=== PATIENT | male | born 1960 | race Caucasian/White ===

== ENCOUNTER → 2020-10-13 14:17 | Outpatient (CLI) | payer BC, SELFPAY ==
--- NOTE | ~2020-10-13 | CT_ITS ---
EXAMINATION: CTA chest PE protocol EXAM DATE: 10/13/2020 14:45 INDICATION: Dyspnea. TECHNIQUE: Spiral CTA of the chest (pulmonary arteries) was performed with 100 cc Omnipaque 350 intr avenous contrast injection. Images were acquired during the pulmonary arterial phase. Coronal maxi mum intensity projection 3D-reconstructions were created by the technologist on dedicated workstation . Axial, coronal and sagittal reformatted images were reviewed. The dose-length product (DLP) for t his examination was 700.29 mGy-cm. The exposure was tailored according to patient size (auto mA exp osure control), and iterative reconstruction (ASIR) was used as additional dose reduction technique. There is no prior study for comparison. FINDINGS: There is pulmonary embolism in the right main pulmonary artery extending into middle and l ower lobe segmental pulmonary arteries. Some small peripheral right-sided opacities that could be ac zachary pulmonary infarctions. Mild bilateral interlobular septal thickening and some groundglass opaciti es differential diagnosis including chronic interstitial lung disease, pulmonary edema. There are no pleural or pericardial effusions. Tracheobronchial tree is patent. There is no mediastinal, hilar or axillary lymphadenopathy. There is no pneumothorax. Heart normal in size. No evidence of co ronary arterial calcification. Upper abdomen is unremarkable. There is thoracic spondylosis withou t osteoblastic or osteolytic lesions identified. IMPRESSION: 1. Positive for right-sided interlobar, segmental pulmonary emboli. Small associated infarctions. 2. Interlobular septal thickening, some ground glass opacities most likely either chronic interstiti al lung disease or pulmonary edema. Reviewed, dictated and finalized at location A. 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 Positive for right-sided interlobar, segmental pulmonary emboli. Small asso ciated infarctions. 2. Interlobular septal thickening, some ground glass opacities most likely eit her chronic interstitial lung disease or pulmonary edema.
== END ==
PROVIDERS: PCP Family Medicine; Visit Provider Family Medicine
DX: R06.00 Dyspnea, unspecified (principal)
CPT/HCPCS: 71275; Q9967

== ENCOUNTER → 2020-11-29 11:24 | Outpatient (CLI) | payer BC, SELFPAY ==
--- NOTE | ~2020-11-29 | XR_ITS ---
XR foot LT min 3V DATE: 11/29/2020 12:59 INDICATION: Left foot pain TECHNIQUE: 4 views COMPARISON: None FINDINGS: There is mild plantar calcaneal enthesopathy and minimal posterior calcaneal enthesopathy. No fracture or dislocation, periosteal reaction or bone destruction. Mild osteoarthritis at first metatarsophalangeal joint. No fracture, dislocation, periosteal reaction or bone destruction. IMPRESSION: Calcaneal enthesopathy Mild osteoarthritis at first metatarsophalangeal joint Reviewed, dictated and finalized at location B. 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
--- NOTE | ~2020-11-29 | XR_ITS ---
XR chest 2V 11/29/2020 12:59 Indication: Wheezing. Dyspnea. Procedure: PA and lateral views of the chest Comparison: No prior studies for comparison. Findings: There is subsegmental atelectasis/scarring right mid thorax. No focal pneumonia, edema, eff usion or pneumothorax. Heart size normal. Calcified granulomas in the left lung. Impression: 1: Subsegmental atelectasis/scarring right mid lung zone. Reviewed, dictated and finalized at location A. 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
== END ==
PROVIDERS: PCP Family Medicine; Visit Provider Nurse Practitioner Family
DX: R06.2 Wheezing (principal); M79.672 Pain in left foot; M77.32 Calcaneal spur, left foot; R91.8 Other nonspecific abnormal finding of lung field
CPT/HCPCS: 71046; 73630

== ENCOUNTER → 2021-03-20 08:39 | Outpatient (CLI) | payer BC, SELFPAY ==
--- NOTE | ~2021-03-20 | CT_ITS ---
EXAMINATION: CT diagnostic chest wo con EXAM DATE: 03/20/2021 09:14 INDICATION: History of severe acute respiratory syndrome. Shortness of breath. TECHNIQUE: Spiral CT of the chest without contrast. HRCT. Axial, coronal and sagittal images were re viewed. Coronal maximum intensity pixel images of chest reviewed. The dose-length product (DLP) for this examination was 649.87 mGy-cm. The exposure was tailored according to patient size (auto mA ex posure control), and iterative reconstruction (ASIR) was used as additional dose reduction technique. Comparison is made to prior examination from 10/13/2020. FINDINGS: Significant interval improvement in the previously seen peripheral abnormal reticulation w ith only evidence of mild residual interlobular septal thickening, most likely Nonspecific Interstiti al Pneumonitis pattern (NSIP) interstitial lung disease with many possible underlying etiologies incl uding collagen vascular disease, medications/drugs, prior viral infection (COVID-19), hypersensitivit y pneumonitis, idiopathic etiologies. Some left lower lobe calcifications, granulomas. There are no pleural or pericardial effusions. Tracheobronchial tree is patent. There is no mediastinal, samy r or axillary lymphadenopathy. There is no pneumothorax. Heart normal in size. No evidence of c oronary arterial calcification. Hepatomegaly and hepatic steatosis. There is mild thoracic spondylo sis without osteoblastic or osteolytic lesions identified. IMPRESSION: 1. Mild interstitial lung disease, significant interval improvement. 2. Hepatomegaly, hepatic steatosis. Reviewed, dictated and finalized at location A.
== END ==
PROVIDERS: PCP Family Medicine
DX: J84.9 Interstitial pulmonary disease, unspecified (principal); R16.0 Hepatomegaly, not elsewhere classified; Z86.16 Personal history of COVID-19; M47.814 Spondylosis without myelopathy or radiculopathy, thoracic region
CPT/HCPCS: 71250

== ENCOUNTER → 2021-07-17 14:55 | Outpatient (CLI) | payer BC, SELFPAY ==
--- NOTE | ~2021-07-17 | XR_ITS ---
EXAMINATION: XR hip RT min 2V DATE: 07/17/2021 15:08 INDICATION: Right hip pain. TECHNIQUE: 2 views of right hip were obtained. COMPARISON: None. FINDINGS: Bone alignment is normal. No fracture. There is mild right hip osteoarthritis. IMPRESSION: 1. Mild right hip osteoarthritis. Reviewed, dictated and finalized at location A.
== END ==
PROVIDERS: PCP Family Medicine; Visit Provider Nurse Practitioner Family
DX: M16.11 Unilateral primary osteoarthritis, right hip (principal)
CPT/HCPCS: 73502